=== PATIENT | female | born 1995 | race Caucasian/White ===

== ENCOUNTER 2017-02-25 05:32 | Emergency (ER) | payer OTHER ==
[~2017-02-25] VITALS: Ht 170.2 cm; Wt 84.1 kg
[2017-02-25 05:38] VITALS: BP 124/74; PULSE 59; RESP 18; O2SAT 100
--- NOTE | 2017-02-25 06:17 | ED.REPORT ---
HPI-Extremity Problem Lower Date of Service Feb 25, 2017 ED Provider: Dioni Benson MD 21 y/o female with no pertinent hx presents to the ED complaining of left knee pain, onset earlier today.The pt was at work when she twisted her left knee. She states she was kneeling slightly to pick something up but she could not get up as her knee didn't extend. She massaged the knee and was able to get up and walk around but it got stuck again. Since then her knee has been locked in place and it is painful to move it. She denies knee swelling. The pt states "this is my trouble knee and I usually wear a brace on it." She has no hx of lock joint in this knee and has not experienced similar sx before. She took Ibuprofen before arrival with no relief. Nursing Notes Stated Complaint: LEFT KNEE INJURY Chief Complaint: Extremity Trauma Nursing Notes Reviewed: Yes ([employer] not reconciled) Allergies: Coded Allergies: neomycin (Verified Allergy, Unknown, 02/25/17) Scheduled PRN Hydrocodone-Acetaminophen 5-325 mg (Hydrocodone-Acetaminophen 5-325 mg) 1 Each Tablet 0.5-1 TABLET PO Q4H PRN PRN For Pain General Time Seen by MD: 06:08 Chief Complaint Knee injury left Hx Obtained From: Patient Arrived By: Walk-in Onset Occurred: 1 - 4 hours ago Symptom Duration: Since onset Caused by: Body motion Location: : Knee left Quality: Painful Severity: Current: Moderate Severity: Maximum: Moderate Recent Healthcare: No recent doctor visit Similar Sx Previous: No Past Medical History Smoking History Unknown if Ever Smoker Social History Drug Use: THC (rarely) Other Social History: Good social support Ambulatory Status Independent Review of Systems Musculoskeletal: Reports: Joint pain (left knee), Denies: Joint swelling (left knee) Complete sys rev & neg: except as marked. Physical Exam Initial Vital Signs Vital Signs (First) Date Time Temp Pulse Resp B/P Pulse Ox O2 Delivery O2 Flow Rate FiO2 02/25/17 05:38 36.4 59 18 124/74 100 Room Air Initial VS: Reviewed, Vital signs normal Neck: Supple, Non-tender, Full range of motion Respiratory: Breath sounds normal, No respiratory distress Cardiovascular: Regular rate & rhythm, Heart sounds normal, Intact distal pulses Abdomen / GI: Soft, Non-tender Upper Extremities: Vascular intact, Neuro intact, No swelling, No tenderness Skin: Warm, Dry, No cyanosis Neurologic: Alert, Oriented, Nonfocal Lower Extremity / Pelvis / MS: Atraumatic, Full range of motion, No swelling, No deformity, Neurologic intact, Vascular intact No knee effusion No laxity Negative anterior draw test. FROM of the left knee. It does not lock up but pt experiencing anticipatory discomfort. She describes soreness just medial to the patella Ankle / Foot: Atraumatic, Full range of motion, No swelling, Non-tender, No deformity, Neurologic intact, Vascular intact General/Constitutional: Awake, Alert, Cooperative Interpretation & Diagnostics X-Ray Interpretation Xray Interpretation: Negative for a fx. X-Ray Ordered: Knee left Interpretation / Wet Read by: Wet read ED physician Re-Eval/Medical Decision Med Decision/Clinical Course This is a 21-year-old healthy female presents complaining of left knee pain. She she has had intermittent problems with her left knee, does have a knee brace that she wears intimately, was at work yesterday though had a twisting motion. Pop and pain. She reports that her legs simply would not straighten hallway, she reports over the course of the day that has improved. She still having soreness, just medial to the patella, but is actual lateral and anterior to the location of the MCL ligament. She has had no effusion. She reports again since yesterday the soreness is been persistent, while she is able bear weight, it feels like the knee catches and will not fully straighten or flex at times. Although her the department she is actually able to flex and extend the knee-although she does so with great anticipatory discomfort, but does not actual have recurrence of discomfort. I do not appreciate any swelling, there is no effusion, I do not appreciate point tenderness over the MCL anterior cruciate ligament, nor is there laxity on ligamentous evaluation. She has not anticipatory discomfort that I cannot perform Sonny's or Delbert test, but I am able to fully and slowly extend and flex without the knee locking up. Nor is there laxity of the anterior posterior ligaments. Radiographs are negative. She did take an ibuprofen. Her symptoms are suspicious for the possibility of a meniscal injury given she describes the locking up of the knee, but there is no locked knee phenomena present. Supportive and conservative measures are recommended, a work note for the next couple of days is provided. I have written for some when necessary hydrocodone to use for soreness if needed and explained she could take as well as a half a tab. I have gone ahead and provided a referral to orthopedic for outpatient follow-up. The patient's discharge in good condition Source of Hx: Old records Re-Evaluation/Progress : Time of Eval: 06:39 Re-Evaluation/Progress Note: Rechecked pt. Discussed lab results, imaging results, diagnosis and plan to discharge. Pt understands and agrees with the plan. F/U instructions and RTER warning given. All questions addressed. Differential Diagnosis: Negative: Abrasion, Abscess, Achilles tendon rupture, Ankle dislocation, Arterial occlus/ischemia, Compartment syndrome, Femur fracture, Fibular fracture, Knee disloc ant, Knee disloc post, Knee effusion, Knee fracture, Laceration, Lesser trochant fracture, Nail bed laceration, Neurovascular injury, Open fracture, Proximal tibia fracture, Puncture wound, Subungual hematoma, Superficial thrombophleb, Venous thromboembolism Counseled Regarding: Diagnosis, Need for follow-up, When/why to return to ED Discharge & Departure Impression: Primary Impression: Left knee sprain Encounter type: initial encounter Involved ligament of knee: unspecified ligament Qualified Code: S83.92XA - Sprain of unspecified site of left knee, initial encounter Disposition: Home Discharge Condition All VS Reviewed: Yes Condition: Stable Patient Instructions: Knee Sprain (ED) Additional Instructions: 1. Your symptoms are concerning for the possibility of a meniscal injury of the knee. I do not appreciate any ligamentous laxity and your knee Xray was normal with no effusion. 2. Continue to ice the knee. 3. Use the crutches and your splint NEEDED. 4. Continue ibuprofen 400-600mg three times a day for soreness as needed. 5. Take hydrocodone/APAP 5/325 1/2 tab-1 tab up to every 6 hours if needed for more severe pain. NOTE: This medication contains a narcotic and causes drowsiness. No driving for at least 4 hours after taking. 6. Symptoms often resolve with time on their own. However, given you have had problems with this knee before, and that sometimes a meniscal injury can continue to cause joint locking problems, you can follow up with the orthopedist Dr. Mai for further evaluation. Call for an appointment. Referrals: Laurel Rose MD (Family) Billy Mai MD Scribe Attestation Portions of this note were transcribed by Alana Osorio. I, , personally performed the history, physical exam and medical decision- making;I reviewed and confirmed the accuracy of the information in the transcribed note. Signed by Law Rivera. 02/25/17 06:52 copies to: Billy Mai MD; Laurel Rose MD, Matthew F MD Feb 25, 2017 06:17 Alana Osorio Feb 25, 2017 06:38
[2017-02-25] MEDS ORDERED: HYDROcodone-APAP 5-325 mg Tablet PO ONE (06:40)
[2017-02-25] MEDS ORDERED: HYDR-4003 PO (06:46)
[2017-02-25 07:19] VITALS: BP 127/80; PULSE 61; RESP 16; O2SAT 99
--- NOTE | 2017-02-25 08:52 | DRSVH ---
PROCEDURE: X-RAY LEFT KNEE, THREE VIEWS ([id number]) INDICATIONS: PAIN TECHNIQUE: 3 views of the knee were acquired. COMPARISON: None. FINDINGS: Bones: No fractures or dislocations. No suspicious bony lesions. The bone mineralization is within normal limits. No significant degenerative changes of the knee are identified. Soft tissues: No joint effusion. No suspicious soft tissue calcifications. IMPRESSION: Unremarkable left knee radiographs. No fracture. Dictated by: Vitaly Pederson M.D. on 02/25/2017 at 8:50 Approved by: Vitaly Pederson M.D. on 02/25/2017 at 8:51
== END 2017-02-25 07:22 | disposition home or self-care (01) ==
LOC: SED 05:32
DX: S83.92XA Sprain of unspecified site of left knee, initial encounter (principal); X50.0XXA Overexertion from strenuous movement or load, initial encounter; Y93.89 Activity, other specified; Y92.89 Other specified places as the place of occurrence of the external cause; Y99.0 Civilian activity done for income or pay; Z88.1 Allergy status to other antibiotic agents

== ENCOUNTER 2017-03-11 19:14 | Inpatient (IN) | payer OTHER ==
[~2017-03-11] VITALS: Ht 170.2 cm; Wt 86.0 kg
[~2017-03-11 19:14] MED LIST: HYDR-4003 PO
[2017-03-11 20:13] VITALS: BP 121/85; PULSE 61; RESP 18; O2SAT 100
--- NOTE | 2017-03-11 20:49 | ED.REPORT ---
HPI-Extremity Problem Lower Date of Service Mar 11, 2017 ED Provider: Dr. Benson Pt is a 21 y/o female w/ a hx of left meniscus tear presenting to the ED c/o left foot swelling onset 4 hours ago. The patient tore her left medial meniscus 2 weeks ago after turning to the right after standing up from squatting. She has had some baseline foot swelling since the incident but recently it has significantly increased. She has been keeping her leg elevated regularly since the injury but today had friends were over so didn't have it elevated for 1 hour. She c/o associated left calf and knee pain. She denies any other symptoms or history of DVT or PE. Nursing Notes Stated Complaint: SWOLLEN LEFT FOOT Chief Complaint: Extremity Trauma Nursing Notes Reviewed: Yes ([employer], [employer] not reconciled) Allergies: Coded Allergies: neomycin (Verified Allergy, Unknown, 02/25/17) Scheduled PRN Hydrocodone-Acetaminophen 5-325 mg (Hydrocodone-Acetaminophen 5-325 mg) 1 Each Tablet 0.5-1 TABLET PO Q4H PRN PRN For Pain General Time Seen by MD: 20:47 Chief Complaint Other (left foot swelling) Hx Obtained From: Patient Arrived By: Walk-in Onset Occurred: 1 - 4 hours ago Symptom Duration: Since onset Location: : Knee left Quality: Painful Severity: Current: Mild Severity: Maximum: Moderate Exacerbated by: Range of motion Similar Sx Previous: No Past Medical History Past Medical History Left meniscus tear Otherwise healthy Past Surgical History Denies Smoking History Unknown if Ever Smoker Social History Drug Use: THC Other Social History: Good social support Ambulatory Status Independent Review of Systems Constitutional: Denies: Chills, Fever Musculoskeletal: Reports: Extremity pain, Extremity swelling Complete sys rev & neg: except as marked. Respiratory: Denies: Non-productive cough, Shortness of breath Cardiovascular: Denies: Chest pain, Dyspnea on exertion GI: Denies: Abdominal pain, Nausea, Vomiting Physical Exam Initial Vital Signs Vital Signs (First) Date Time Temp Pulse Resp B/P Pulse Ox O2 Delivery O2 Flow Rate FiO2 03/11/17 20:13 36.7 61 18 121/85 100 03/11/17 22:42 Room Air Initial VS: Reviewed, Vital signs normal Head / Eyes: Atraumatic, Normocephalic, PERRL ENT: Mucous membranes moist, Conjunctiva normal, No scleral icterus Neck: Supple, Full range of motion Respiratory: Breath sounds normal, Clear to auscultation, No respiratory distress Cardiovascular: Regular rate & rhythm, Heart sounds normal, Intact distal pulses Abdomen / GI: Soft, No distention Upper Extremities: Vascular intact, Neuro intact, No swelling Skin: Warm, Dry, No cyanosis Neurologic: Alert, Oriented, Nonfocal Psychiatric: Mood/affect normal, Behavior normal, Normal thought content Lower Extremity / Pelvis / MS: Atraumatic, Neurologic intact, Vascular intact, No compartment syndrome Edematous leg below the knee No hemearthrosis Mild calf tenderness Ankle / Foot: Atraumatic, No erythema, No deformity, Neurologic intact, Vascular intact, No compartment syndrome 2+ pitting edema of the left foot PT and DP pulses are 2+ General/Constitutional: Awake, Alert, No acute distress, Well appearing, Cooperative, Not toxic appearing Interpretation & Diagnostics X-Ray Interpretation Xray Interpretation: IMPRESSION: No visualized acute fracture or dislocation. However, if clinical concern and/or pain persist, short interval imaging followup in 7-10 days is recommended, as occult injury cannot be definitively excluded. Dictated by: Brandee Hughes M.D. on 03/11/2017 at 21:00 Approved by: Brandee Hughes M.D. on 03/11/2017 at 21:01 Study Performed: 2 views X-Ray Ordered: Foot left Interpretation / Wet Read by: Interpret - Radiologist US Focused Lower Ext Venous Conclusion: Abnormal study. The venous thrombosis within the distal left superficial femoral vein and popliteal vein. Images submitted for interpretation at 23:30. Verbal report given to ED physician by the turning and beading machine operator at 21:40 hrs. Interpreted by Oren Tavera MD at 23:39 Exam Performed by: Allied health pract Exam Interpreted by: Radiologist Re-Eval/Medical Decision Med Decision/Clinical Course This is a pleasant 21-year-old healthy female who is on OCPs, but is on NuvaRing , who reports she injured her left knee and has meniscal injury that occurred about 2 weeks ago. She reports she tried to keep off the leg, keep it elevated , the past 24 hours ago calf pain and swelling in the leg- and so came to the emergency department. She denies any chest pain, shortness of breath. She is complaining of marked swelling of the leg, and some calf discomfort. She reports the discomfort is more pronounced than the actual knee discomfort which is what bothered her initially. She has no cardiopulmonary symptoms. She has no prior history of DVT or PE. He is otherwise healthy. On exam she has sizable swelling of the left leg, she has intact pulses. The foot is swollen, the calf is swollen, Is mildly tender. There is no effusion of the knee. She is not tachycardic hypotensive or hypoxic. An ultrasound was obtained and is positive for DVT in the distal left superficial femoral vein and popliteal vein. Since this is following a traumatic injury to the left knee, the DVT is provoked. Given the swelling and calf discomfort, discussed with our radiologist the possibility the patient may be a candidate for localized catheter directed thrombo lysis. It is a young, healthy patient with marked swelling and moderate pain, and the radiologist agrees. Therefore the plan is hospitalization, heparin, and interventional radiology consultation in the a.m. Case is discussed with the hospitalist. Source of Hx: Old records Re-Evaluation/Progress #1: Time of Eval: 23:08 Re-Evaluation/Progress Note: Informed pt that we are awaiting US read for a very long time. Re-Evaluation/Progress #2: Time of Eval: 23:42 Re-Evaluation/Progress Note: Finally received report from radiologist confirming extensive clot. Informed pt of need for admission. Pt understands and agrees with plan for admission. All questions addressed. Consultation : Referral / Consult Name: Brandee Hughes MD Call Returned at: 21:43 Public Policy Associate: Agrees with eval, Agrees with plan Note: Discussed case with radiologist regarding catheter directed thrombolysis. Will evaluate imaging and call back. Believes she is a good candidate for thrombolysis by the interventional radiologist tomorrow. Differential Diagnosis: Positive: Venous thromboembolism, Negative: Abrasion, Abscess, Arterial occlus/ischemia, Cellulitis, Compartment syndrome, Fracture, Knee disloc ant, Knee disloc post, Knee effusion , Laceration, Lesser trochant fracture, Puncture wound, Subungual hematoma Counseled Regarding: Diagnosis, Need for admission Discharge & Departure Impression: Primary Impression: Deep vein thrombosis (DVT) of femoral vein of left lower extremity Chronicity: acute Qualified Code: I82.412 - Acute embolism and thrombosis of left femoral vein Additional Impression: Deep venous thrombosis of left popliteal vein Chronicity: acute Qualified Code: I82.432 - Acute embolism and thrombosis of left popliteal vein Disposition: ADMITTED TO HOSPITAL Discharge Condition All VS Reviewed: Yes Condition: Improved Referrals: Chtean Tate MD (PCP) Law Attestation Portions of this note were transcribed by Dario Michaels. I, Dr. Benson personally performed the history, physical exam and medical decision-making; I reviewed and confirmed the accuracy of the information in the transcribed note. Signed by Law Ngo, 03/11/17 - [id number] copies to: Chetan Tate MD, Matthew F MD Mar 11, 2017 20:49 DARIO MICHAELS Mar 11, 2017 21:19
--- NOTE | 2017-03-11 21:02 | DRSVH ---
PROCEDURE: X-RAY LEFT FOOT, TWO VIEWS ([id number]) INDICATIONS: edema TECHNIQUE: 2 views of the foot were acquired. COMPARISON: None. FINDINGS: Bones: No fractures or dislocations. No suspicious bony lesions. Soft tissues: No tibiotalar joint effusion. Achilles tendon appears normal. IMPRESSION: No visualized acute fracture or dislocation. However, if clinical concern and/or pain pe rsist, short interval imaging followup in 7-10 days is recommended, as occult injury cannot be defini tively excluded. Dictated by: Brandee Hughes M.D. on 03/11/2017 at 21:00 Approved by: Brandee Hughes M.D. on 03/11/2017 at 21:01
[2017-03-11 22:42] VITALS: BP 127/70; PULSE 65; RESP 20; O2SAT 99
[2017-03-11] MEDS ORDERED: Heparin 25K Unit/500mL 0.45 NS 25,000 UNIT in IV Premix 1 EACH IV ONE (23:40)
[2017-03-11] MEDS ORDERED: Heparin 5,000 Unit/mL Inj IVPUSH ONE (23:40)
[2017-03-12] VITALS (7 sets, daily range): BP systolic 117–143; BP diastolic 68–81; PULSE 46–68; RESP 16–20; O2SAT 98–100
[2017-03-12 00:28] LABS: BASOPHILS % (AUTO) 0.4 % (0-3); EOSINOPHILS % (AUTO) 4.2 % (0-5); MONOCYTES % (AUTO) 6.1 % (4-12); Mean Corpuscular Hemoglobin 29.8 pg (27.0-35.0); Mean Corpuscular Volume 87.5 fL (81-100); NEUTROPHILS % (AUTO) 52.7 % (40-74); Platelet Count 304 bil/L (150-400)
[2017-03-12] MEDS ORDERED: ETON1VAG VG (00:54)
[2017-03-12] MEDS ORDERED: HYDROcodone-APAP 5-325 mg Tablet PO ONE (01:10)
[2017-03-12] MEDS ORDERED: Alum-Mag Hydrox-Simeth 30 mL Suspension PO PRN ×2 (01:15→03:20)
[2017-03-12] MEDS ORDERED: Ondansetron 2 mg/mL 2 mL Inj IVPUSH PRN ×2 (01:15→03:20)
--- NOTE | 2017-03-12 02:55 | NUR ---
Admit Patient arrived to unit able to transfer self to bed. Oriented to room by NAC. A&Ox3. Patient education on DVT's, Heparin drip, and adverse side effects of pain medications. c/o pain and or soreness in left calf, swollen left foot. Will continue to monitor. Bed in low position, call light within reach, intentional rounding.
--- NOTE | 2017-03-12 02:57 | PCM.HPMED ---
Subjective Date of Service Mar 12, 2017 Primary Provider: Admitting Physician: Sean Fritz MD Primary Care Physician: Chetan Tate MD Attending Physician: Sean Fritz MD Admit Status: From the Emergency Department Chief Complaint: Lower extremity swelling and pain onset 4 hours ago status post a left medial knee meniscal tear 2 weeks ago History of Present Illness: Pt is a 21 y/o female on no oral contraceptives but with history of NuvaRing who presented to the ED with history of left meniscus tear onset approximately 2 weeks ago. She is now complaining of left foot swelling for the past week and a half or so that significantly worsened earlier on the day of admit. Patient states that she was seen by her primary care physician office Dr. Welsh for evaluation of her left knee injury. She reportedly tore her left medial meniscus after turning to the right after standing up from squatting position. She states that she had also been seen by orthopedic surgery and is waiting an MRI approval. She was told she likely has a medial meniscal tear as that is where the location of her knee pain originated. Earlier today she had experience worsening of her left lower extremity baseline foot swelling. Today the swelling significantly increased as did her calf pain after having failed to sufficiently keep her extremity elevated. Patient states that she had been keeping her leg elevated previously which helped the swelling. She states that the leg pain is currently 0-10 when not being moved however can jump up to 5 out of 10 if bumped or if moved the wrong way. Patient denies fever, nausea, vomiting, chills, sweats, shortness of breath, dyspnea, pleuritic chest pain, headache, chest pain of any sort, cough. She denies any other symptoms or history of DVT or PE. Left lower extremity x-ray showed: No tibiotalar joint effusion. Achilles tendon appears normal. No visualized acute fracture or dislocation. Patient had venous Doppler of left lower extremity which showed: Abnormal study venous thrombosis within the distal left superficial femoral vein and popliteal vein.The case was discussed with Dr. Brandee Hughes radiology, who recommended heparin drip and believes the patient is a good candidate for venous thrombectomy. Radiology will consult patient in the morning regarding this procedure. Patient received medication [place] 5/325 once, loading dose of heparin and placed on heparin drip. In the ED vital signs: temperature 36.7, pulse 61, respiratory rate 18, blood pressure 121/85, oxygen 100% on room air. Hemogram was within normal limits. Chemistry panel was within normal limits. Review of Systems: A comprehensive review of systems was conducted and was negative except as mentioned in history of present illness. Allergies Coded Allergies: neomycin (Verified Allergy, Unknown, 02/25/17) Home Medications Hydrocodone-Acetaminophen 5-325 mg (Hydrocodone-Acetaminophen 5-325 mg) 1 Each Tablet 0.5-1 TABLET PO Q4H PRN PRN For Pain PMH Left meniscus tear Otherwise healthy Surgical History Denies Family History Noncontributory Social History Hx Alcohol Use: No Hx Substance Use: No Hx Tobacco Use: No Smoking Status: Unknown if Ever Smoker Exam Vital Signs Vital Sign - Last Date Time Temp Pulse Resp B/P Pulse Ox O2 Delivery O2 Flow Rate FiO2 03/12/17 01:34 36.5 68 20 143/76 100 Room Air Intake and Output 03/11/17 03/11/17 03/12/17 Cumulative From/Thru 15:00 23:00 07:00 03/11/17 20:13 - 03/12/17 00:51 Intake Total 240 ml 240 ml Balance 240 ml 240 ml Intake Oral 240 ml 240 ml # Voids 1 1 Exam General: HEENT: NC/AT, eyes, PERRLA, EOMI, neck, soft supple, no adenopathy, no JVD, no masses, no thyromegaly, throat mucous membranes pink and moist/Dry, no erythema , no exudates, no tonsillar swelling, no uvular deviation. Lungs: CTAB all oleary, no wheezes, no rhonchi, no crackles, no adventitious lung sounds, no use of accessory muscles of respiration, good air movement, good respiratory effort. Heart: Regular rate and rhythm, no murmur, S1-S2 present, no rub, no click, no distant heart sounds, Abdomen: Soft, nontender, nondistended, bowel sounds active, no rebound, no guarding, Genitourinary: No CVA tenderness, no suprapubic tenderness, no Le catheter, Extremities: Muscle strength, 5 out of 5 upper/lower extremity and symmetric laterally, reflexes 2 out of 4 upper/lower extremity and symmetric bilaterally, pulses equal and symmetric upper/lower extremity including radial and dorsalis pedis, no edema Neurologic: See neurologically intact, PT in full sentences, no focal neurological signs, [id number], [id number], no pronator drift, no hemineglect. Skin: Psychiatric: Mood is cheerful and mood and affect are congruent and appropriate. Lab and Diagnostics Result Diagram: 03/12/17 0010 03/12/17 0010 X-Rays, CTs and MRIs Date of Service: 03/11/172015 PROCEDURE: X-RAY LEFT FOOT, TWO VIEWS INDICATIONS: edema FINDINGS: Bones: No fractures or dislocations. No suspicious bony lesions. Soft tissues: No tibiotalar joint effusion. Achilles tendon appears normal. IMPRESSION: No visualized acute fracture or dislocation. However, if clinical concern and/or pain persist, short interval imaging followup in 7-10 days is recommended, as occult injury cannot be definitively excluded. Dictated by: Brandee Hughes M.D. on 03/11/2017 at 21:00 Approved by: Brandee Hughes M.D. on 03/11/2017 at 21:01 Assessment & Plan Pt is a 21 y/o female otherwise healthy who presented to the ED w/ a hx of left meniscus tear onset approximately 2 weeks ago and now with evidence of DVT on venous Doppler. Patient was admitted for heparin drip and anticipated venous thrombectomy by interventional radiology in the morning. # DVT, acute, present on admission, active - Lower extremity pain and swelling onset today, status post trauma 2 weeks ago after having reportedly having torn the medial left meniscus. - Temperature 36.7, pulse 61, respiratory rate 18, blood pressure 121/85, oxygen 100% on room air. - Left lower extremity x-ray showed: No tibiotalar joint effusion. - As seen on venous Doppler of the left lower extremity. Abnormal study venous thrombosis within the distal left superficial femoral vein and popliteal vein. - Dr. Brandee Hughes radiology, who recommended heparin drip and believes the patient is a good candidate for venous thrombectomy. - Radiology will consult patient in the morning regarding this procedure. Please call on-call radiologist in the a.m. and confirm. - Continue with pain control with by mouth medications [place] 5/325 mg every 4 hours as needed - Continue heparin drip started in the ED - PTT ordered and pending - Patient nothing by mouth for pending procedure - We will start IV fluid hydration. Disposition: Admitted to in patient service with expected length of stay greater than 2 days, secondary to severity of presenting symptoms, treatment plan, complexity of clinical work up, and risk of adverse events. CODE STATUS: Full code PCP: Chetan Tate DVT PE prophylaxis: Currently on a On heparin drip for DVT Contact: VTE Prophylaxis: Other (on heparin drip) Resuscitation Status: CPR: Attempt Resuscitation Bunny Navarro DO Mar 12, 2017 02:57
[2017-03-12] MEDS ORDERED: Polyethylene Glycol (PEG) 17 Gm Powder PO PRN (03:20)
[2017-03-12] MEDS ORDERED: HYDROcodone-APAP 5-325 mg Tablet PO PRN (03:20)
[2017-03-12] MEDS ORDERED: 0.9% Sodium Chloride 1,000 ML IV SCH (03:55)
--- NOTE | 2017-03-12 08:24 | DRSVH ---
PROCEDURE: US VEINOUS LEG DUPLEX UNILATERAL, LEFT INDICATIONS: swelling, pain (s/p recent trauma) ro DVT TECHNIQUE: Real-time imaging, as well as color and pulse Doppler interrogation, were performed of the lower extr emity deep veins from the inguinal ligament to the popliteal fossa. COMPARISON: None. FINDINGS: Focal thrombus present within the distal left superficial femoral and the popliteal vein. Common femoral and remainder of the superficial femoral vein is patent. IMPRESSION: Deep venous thrombosis involving the left distal superficial femoral and popliteal veins. Note: These findings are concordant with the preliminary interpretation. Dictated by: Dom Morales Anselmo Interpreted: Mariana Moses MD on 03/12/2017 at 8:22 Transcribed by: ELVIN on 03/12/2017 at 8:23 Approved by: Mariana Moses MD, PhD on 03/12/2017 at 10:34
[2017-03-12] MEDS ORDERED: APIX5TAB PO (09:19)
--- NOTE | 2017-03-12 09:27 | PCM.DIMED ---
Discharge Instructions Date of Service Mar 12, 2017 Dates of Hospitalization Mar 12, 2017 at 00:45 Discharge Diagnosis Discharge Diagnosis left lower extremity DVT Medication Instructions Additional med instructions Please continue blood thinner Apixaban take 10mg(2tab) twice a day for 7days, then 5mg(1tab) twice a day Diet Discharge Diet: No restrictions Activity Discharge Activity: No restrictions Call your provider Call your provider for: Shortness of breath, Chest pain, Other (bloody stools or black stools) Patient Instructions Patient Instructions You were hospitalized with acute onset blood clots on your left leg, you were treated with blood thinner. It is likely that it was triggered by left knee injury you had. You need to continue blood thinner at least 3months. Please follow up with for 2weeks Follow-up Provider: Chetan Tate MD Follow-up with PCP in: 2 weeks Sp Dupree MD Mar 12, 2017 09:27
--- NOTE | 2017-03-12 10:32 | NUR ---
Social Work: Screening/Readiness for Discharge D: EMR reviewed. Pt is a 21 y/o female admitted for left DVT per H&P. Per MD in AM multi-disciplinary rounds, pt is medically stable and will discharge today. Pt's insurance is [employer] and [employer] (out of state). PCP is Chetan Tate MD. Pt's NOK is Father Victoriano Pace ([phone]). requested AMY to meet with pt to determine preferred pharmacy and run rx for gonsalves. SW will coordinate rx and gonsalves and update family. Pt anticipated to discharge home today via POV. AMY does not anticipate any discharge needs at this time but will continue to follow if needs arise. A: Pt who is independent at baseline P: SW to determine pt's preferred pharmacy and run rx/update pt with gonsalves. Pt anticipated to discharge home today via POV. AMY does not anticipate any discharge needs at this time but will continue to follow if needs arise. BEATRICE Parrish Addendum: 03/12/17 at 1048 by YOSELYN SANCHEZ SS AMY confirmed pt's [facility] is [facility] [address] fax rx to [facility] to determine gonsalves, update pt. BEATRICE Parrish Addendum: 03/12/17 at 1106 by YOSELYN SCHERER AMY faxed rx to [facility] in [place] for review. BEATRICE Parrish Addendum: 03/12/17 at 1238 by YOSELYN SCHERER AMY confirmed that rx co-pay will be $8 and updated pt. Pt is agreeable and has been notified her rx will be ready for pick-up today at the [facility] in [place]. BEATRICE Parrish
--- NOTE | 2017-03-12 14:29 | NUR ---
Social Work: Discharge D: EMR reviewed. Pt is on day 1 of hospitalization. Pt to discharge home today with SO via POV. AMY does not anticipate any discharge needs at this time but will continue to follow if needs arise. A: Pt who is independent at baseline P: Per MD request, AMY faxed rx to [facility] in [place] and confirmed co-pay of $8. AMY updated pt with gonsalves of rx and informed pt rx will be ready for pick-up once pt discharges. Pt agreeable to plan. Pt to discharge home today with SO via POV. AMY does not anticipate any discharge needs at this time but will continue to follow if needs arise. BEATRICE Parrish
--- NOTE | 2017-03-12 14:47 | NUR ---
DISCHARGE Heparin gtt. stopped this morning. Lovenox was administered. Patient denies pain/nausea/SOB. L foot swelling is lesser per patient. She has been getting up and ambulating in the room using her crutches. Voiding without any problems. Eliquis administered prior to discharge. IV saline lock d/cd. Discharge instructions, care notes and prescription was given to the patient and he verbalized understanding. Discharged to home with her friend and all her personal belongings. (Copy of D/C is in the chart).
--- NOTE | 2017-03-12 19:11 | PCM.DC.MED ---
Discharge Summary Date of Service Mar 12, 2017 Dates of Hospitalization Date of Hospital Admission Mar 12, 2017 at 00:45 Date of Discharge: Mar 12, 2017 Providers: Admitting Physician: Sp Tejeda MD Primary Care Physician: Chetan Tate MD Attending Physician: Sp Tejeda MD Diagnosis at Time of Discharge Diagnosis at Time of Discharge left lower extremity DVT Procedures XRay, CTs & MRIs Date of Service: 03/11/172015 PROCEDURE: X-RAY LEFT FOOT, TWO VIEWS INDICATIONS: edema FINDINGS: Bones: No fractures or dislocations. No suspicious bony lesions. Soft tissues: No tibiotalar joint effusion. Achilles tendon appears normal. IMPRESSION: No visualized acute fracture or dislocation. However, if clinical concern and/or pain persist, short interval imaging followup in 7-10 days is recommended, as occult injury cannot be definitively excluded. Dictated by: Brandee Hughes M.D. on 03/11/2017 at 21:00 Approved by: Brandee Hughes M.D. on 03/11/2017 at 21:01 Other Diagnostics PROCEDURE: US VEINOUS LEG DUPLEX UNILATERAL, LEFT INDICATIONS: swelling, pain (s/p recent trauma) ro DVT TECHNIQUE: Real-time imaging, as well as color and pulse Doppler interrogation, were performed of the lower extremity deep veins from the inguinal ligament to the popliteal fossa. COMPARISON: None. FINDINGS: Focal thrombus present within the distal left superficial femoral and the popliteal vein. Common femoral and remainder of the superficial femoral vein is patent. IMPRESSION: Deep venous thrombosis involving the left distal superficial femoral and popliteal veins. Note: These findings are concordant with the preliminary interpretation. Dictated by: Dom Morales [facility] Interpreted: Mariana Moses MD on 03/12/2017 at 8:22 Transcribed by: ELVIN on 03/12/2017 at 8:23 Approved by: Mariana Moses MD, PhD on 03/12/2017 at 10:34 Brief History HPI obtained by on 03/12 Pt is a 21 y/o female on no oral contraceptives but with history of NuvaRing who presented to the ED with history of left meniscus tear onset approximately 2 weeks ago. She is now complaining of left foot swelling for the past week and a half or so that significantly worsened earlier on the day of admit. Patient states that she was seen by her primary care physician office Dr. Welsh for evaluation of her left knee injury. She reportedly tore her left medial meniscus after turning to the right after standing up from squatting position. She states that she had also been seen by orthopedic surgery and is waiting an MRI approval. She was told she likely has a medial meniscal tear as that is where the location of her knee pain originated. Earlier today she had experience worsening of her left lower extremity baseline foot swelling. Today the swelling significantly increased as did her calf pain after having failed to sufficiently keep her extremity elevated. Patient states that she had been keeping her leg elevated previously which helped the swelling. She states that the leg pain is currently 0-10 when not being moved however can jump up to 5 out of 10 if bumped or if moved the wrong way. Patient denies fever, nausea, vomiting, chills, sweats, shortness of breath, dyspnea, pleuritic chest pain, headache, chest pain of any sort, cough. She denies any other symptoms or history of DVT or PE. Left lower extremity x-ray showed: No tibiotalar joint effusion. Achilles tendon appears normal. No visualized acute fracture or dislocation. Patient had venous Doppler of left lower extremity which showed: Abnormal study venous thrombosis within the distal left superficial femoral vein and popliteal vein.The case was discussed with Dr. Brandee Hughes radiology, who recommended heparin drip and believes the patient is a good candidate for venous thrombectomy. Radiology will consult patient in the morning regarding this procedure. Patient received medication Gary 5/325 once, loading dose of heparin and placed on heparin drip. In the ED vital signs: temperature 36.7, pulse 61, respiratory rate 18, blood pressure 121/85, oxygen 100% on room air. Hemogram was within normal limits. Chemistry panel was within normal limits. Hospital Course Pt is a 21 y/o female otherwise healthy who presented to the ED w/ a hx of left meniscus tear onset approximately 2 weeks ago and now with evidence of DVT on venous Doppler. Patient was admitted for heparin drip and anticipated venous thrombectomy by interventional radiology in the morning. 1.Acute dvt, unilateral, provoked, first episode. patient was found to have dvt in distal left superficial femoral vein and popliteal vein. Patient initially started on heparin gtt. Patient was hemodynamically stable, there was no signs of PE. Given history of recent knee trauma, no prior VTE, no FHx of VTE, first provoked dvt, improving with heparin , minimally symptomatic, patient deemed safe for d/c. Thrombectomy/thrombolysis was discussed with , decided it's not indicated. Plan was to start Apixaban 10mg for 7days followed by 5mg bid, likely to continue at least 3mo. Exam Vital Signs (Last) Date Time Temp Pulse Resp B/P Pulse Ox O2 Delivery O2 Flow Rate FiO2 03/12/17 12:30 52 03/12/17 12:17 36.3 16 119/68 100 Room Air Exam patient was examined on the day of d/c. mildly edematous left dorsum, nontender, no calf td or posterior popliteal tenderness. Test 03/12/17 00:10 03/12/17 05:55 White Blood Count 9.6th/mm3 (3.8-10.1) Red Blood Count 4.47mil/mm3 (3.90-5.20) Hemoglobin 13.3g/dL (12.0-15.6) Hematocrit 39.1% (35.0-46.0) Mean Corpuscular Volume 87.5fL (81-100) Mean Corpuscular Hemoglobin 29.8pg (27.0-35.0) Mean Corpuscular Hemoglobin Concent 34.0% (32.0-37.0) Red Cell Distribution Width 12.7% (12.3-15.4) Platelet Count 304bil/L (150-400) Neutrophils (%) (Auto) 52.7% (40-74) Lymphocytes (%) (Auto) 36.5% (14-46) Monocytes (%) (Auto) 6.1% (4-12) Eosinophils (%) (Auto) 4.2% (0-5) Basophils (%) (Auto) 0.4% (0-3) Sodium Level 141mEq/L (134-144) Potassium Level 3.8mEq/L (3.5-5.2) Chloride Level 103mEq/L (97-108) Carbon Dioxide Level 24mmol/L (18-29) Blood Urea Nitrogen 11mg/dL (6-20) Creatinine 0.79mg/dL (0.57-1.00) Estimat Glomerular Filtration Rate 133mL/min (>59) Glucose Level 89mg/dL (60-99) Calcium Level 9.0mg/dL (8.5-10.1) Total Bilirubin 0.4mg/dL (0.0-1.2) Aspartate Amino Transf (AST/SGOT) 17U/L (0-50) Alanine Aminotransferase (ALT/SGPT) 13U/L (0-32) Alkaline Phosphatase 54U/L (25-150) Total Protein 7.1g/dL (6.4-8.4) Albumin 3.9g/dL (3.4-5.0) Activated Partial Thromboplast Time 81.8sec (22.8-33.0) Discharge Medications Discharge Medications Apixaban (Eliquis) 5 Mg Tablet 5 MG PO BID Prescribed by: SP TEJEDA MD Etonogestrel/Ethinyl Estradiol (Nuvaring Vaginal Ring) 1 Each Vag.ring 1 EACH VG every other week (Reported) As needed Hydrocodone-Acetaminophen 5-325 mg (Hydrocodone-Acetaminophen 5-325 mg) 1 Each Tablet 0.5-1 TABLET PO Q4H PRN PRN For Pain Prescribed by: OPAL PITTS MD Additional med instructions Please continue blood thinner Apixaban take 10mg(2tab) twice a day for 7days, then 5mg(1tab) twice a day Followup Plan Disposition: home Discharge Diet: No restrictions Discharge Activity: No restrictions Patient Instructions You were hospitalized with acute onset blood clots on your left leg, you were treated with blood thinner. It is likely that it was triggered by left knee injury you had. You need to continue blood thinner at least 3months. Please follow up with for 2weeks Follow-up Provider: Chetan Tate MD Follow-up with PCP in: 2 weeks Time spent 65min Sp Tejeda MD Mar 12, 2017 19:11
== END 2017-03-12 14:10 | disposition home or self-care (01) | DRG 301 ==
LOC: SED 19:14 → OBSVTOIN 03-12 00:45 → OSC 03-12 00:45
PROVIDERS: ADMIT Internal Medicine; ATTEND Internal Medicine
DX: I82.412 Acute embolism and thrombosis of left femoral vein (principal)